=== PATIENT | female | born 1995 | race Caucasian/White ===

== ENCOUNTER 2020-04-11 07:56 | Outpatient (CLI) | payer OTHER ==
[2020-04-11 17:24] LABS: SARS-CoV-2 PCR by NAA Not Detected (NotDetected)
== END 2020-04-11 07:57 | disposition home or self-care (01) ==
LOC: LABBT 07:56
PROVIDERS: ATTEND Obstetrics & Gynecology
DX: Z01.812 Encounter for preprocedural laboratory examination (principal); Z20.822 Contact with and (suspected) exposure to COVID-19
CPT/HCPCS: 87635; U0003; U0005

== ENCOUNTER 2020-04-15 19:15 | Inpatient (IN) | payer OTHER ==
[2020-04-15] MEDS ORDERED: Ibuprofen 800 MG TAB PO PRN (19:42)
[2020-04-15] MEDS ORDERED: Butorphanol Tartrate 1 MG/ML VIAL SLOW IVP PRN (19:42)
[2020-04-15] MEDS ORDERED: Lidocaine 1% (PF) 30 ML VIAL SC PRN (19:42)
[2020-04-15] MEDS ORDERED: NS / Oxytocin 40 units/1000ml 1,000 ML IV PRN (19:42)
[2020-04-15] MEDS ORDERED: Acetaminophen 500 MG TAB PO PRN (19:42)
[2020-04-15] MEDS ORDERED: Misoprostol 200 MCG TAB PR PRN (19:42)
[2020-04-15] MEDS ORDERED: Promethazine HCl 25 MG/ML VIAL IM PRN (19:42)
[2020-04-15] MEDS ORDERED: HYDROcodone/Acetaminophen 5/325 mg Tablet PO PRN ×2 (19:42)
[2020-04-15] MEDS ORDERED: hydrALAZINE 20 MG/ML VIAL SLOW IVP PRN (19:42)
[2020-04-15] MEDS ORDERED: Docusate 100 MG CAP PO PRN (19:42)
[2020-04-15] MEDS ORDERED: Penicillin G Potassium 5 MILL.UNITS in Sodium Chloride 0.9% 100 ML IVPB SCH (19:42)
[2020-04-15] MEDS ORDERED: Diphenoxylate HCl/Atropine Tablet PO PRN ×2 (19:42)
[2020-04-15] MEDS ORDERED: Zolpidem Tartrate 5 MG TAB PO PRN (19:42)
[2020-04-15] MEDS ORDERED: Ondansetron PF 4 MG/2 ML Vial IVP PRN (19:42)
[2020-04-15 19:51] VITALS: BMI 32.9
[2020-04-15] MEDS: Lactated Ringer's 1,000 ML IV SCH (20:16)
[2020-04-15] MEDS: Misoprostol 100 MCG TAB VAG SCH ×2 (20:17→23:21)
[2020-04-15 20:21] LABS: Hemoglobin 12.3 g/dL (12.0-16.0); Mean Corpuscular HGB CONC 34.4 g/dL (32.0-36.0); Mean Corpuscular Hemoglobin 29.2 pg (27.0-31.0); Mean Platelet Volume 7.6 fL (7.4-10.4); Platelet Count 232 thou/uL (130-400); RBC Distribution Width 12.8 % (11.5-14.5); Red Blood Cell (RBC) Count 4.22 mill/uL (4.20-5.40); White Blood Cell (WBC) Count 5.3 thou/uL (4.8-10.8)
[2020-04-15] MEDS: Penicillin G 2.5 MILL.units 2.5 MILL.UNITS in Premix Bag 1 BAG IVPB SCH (20:46)
[2020-04-15 20:59] LABS: Syphilis Antibody Nonreactive (Nonreactive); Syphilis Antibody Index 0.03 S/CO (<1.00 Non-Reactive)
[2020-04-15 21:00] LABS: HBSAg Index 0.21 S/CO (0-0.99); Hep B Surf Ag Non-Reactive S/CO (NonReactive)
[2020-04-16] MEDS: Penicillin G 2.5 MILL.units 2.5 MILL.UNITS in Premix Bag 1 BAG IVPB SCH ×6 (00:55→21:57)
[2020-04-16] MEDS: Misoprostol 100 MCG TAB VAG SCH ×4 (05:04→21:57)
[2020-04-16] MEDS ORDERED: Fentanyl 4 mcg/Bup 0.1% Cadd 100 ML ONE (05:26)
[2020-04-16] MEDS: Lactated Ringer's 1,000 ML IV SCH ×3 (05:41→21:56)
[2020-04-16] MEDS ORDERED: ePHEDrine 50 MG/ML VIAL SLOW IVP PRN (06:28)
[2020-04-16] MEDS ORDERED: Lactated Ringer's 500 ML IV PRN (06:28)
[2020-04-16] MEDS ORDERED: diphenhydrAMINE 50 MG/ML VIAL IVP PRN (06:28)
[2020-04-16] MEDS ORDERED: Acetaminophen 325 MG TAB PO PRN (06:28)
[2020-04-16] MEDS ORDERED: Promethazine HCl 25 MG/ML VIAL IM PRN (06:28)
[2020-04-16] MEDS ORDERED: Naloxone HCl 0.4 mg/ml Vial IVP PRN ×2 (06:28)
[2020-04-16] MEDS ORDERED: Ondansetron PF 4 MG/2 ML Vial IVP PRN (06:28)
[2020-04-16] MEDS ORDERED: Fentanyl 4 mcg/Bupivacaine 0.1% Cassette 100 ML EPIDURAL SCH (06:30)
[2020-04-16] MEDS ORDERED: Communication Order-Pharmacy FS SCH (06:30)
[2020-04-16] MEDS ORDERED: Lidocaine 1% (PF) 30 ML VIAL SC PRN (06:49)
[2020-04-16] MEDS ORDERED: NS w/ Oxytocin 30 units 500 ML ONE (07:03)
[2020-04-16] MEDS: NS w/ Oxytocin 30 units 500 ML IV SCH ×16 (21:35→21:56)
[2020-04-16] MEDS ORDERED: Benzocaine-Menthol 82.5 ML CAN TOP PRN (22:01)
[2020-04-16] MEDS ORDERED: diphenhydrAMINE 25 MG CAP PO PRN (22:02)
[2020-04-16] MEDS ORDERED: hydrALAZINE 20 MG/ML VIAL SLOW IVP PRN (22:04)
[2020-04-16] MEDS ORDERED: Lanolin Ointment 7 GM TUBE TOP PRN (22:04)
[2020-04-16] MEDS: Ibuprofen 800 MG TAB PO SCH (22:49)
[2020-04-17] MEDS ORDERED: HYDROcodone/Acetaminophen 5/325 mg Tablet PO PRN ×2 (00:42)
[2020-04-17] MEDS: Ibuprofen 800 MG TAB PO SCH ×2 (06:23→13:36)
[2020-04-17] MEDS: NS w/ Oxytocin 30 units 500 ML IV SCH ×8 (06:28→13:39)
[2020-04-17] MEDS: Penicillin G 2.5 MILL.units 2.5 MILL.UNITS in Premix Bag 1 BAG IVPB SCH ×2 (06:28→13:37)
[2020-04-17] MEDS: Misoprostol 100 MCG TAB VAG SCH ×3 (06:29→13:37)
[2020-04-17] MEDS ORDERED: Prenatal Vitamin 1 TAB PO SCH (09:00)
[2020-04-17] MEDS ORDERED: Docusate Calcium (SURFAK) 240 MG CAP PO SCH (09:00)
[2020-04-17] MEDS: Lactated Ringer's 1,000 ML IV SCH (13:37)
[2020-04-17 17:44] VITALS: BP 125/76; TEMP 98.2
== END 2020-04-17 18:25 | disposition home or self-care (01) | DRG 807 ==
LOC: L&D 19:15 → 3SW 04-16 18:45
PROVIDERS: ADMIT Obstetrics & Gynecology; ATTEND Obstetrics & Gynecology
PROC: 10E0XZZ Delivery of Products of Conception, External Approach (ICD-10-PCS; principal; 2020-04-16)
PROC: 10907ZC Drainage of Amniotic Fluid, Therapeutic from Products of Conception, Via Natural or Artificial Opening (ICD-10-PCS; 2020-04-16)
PROC: 3E0P7VZ Introduction of Hormone into Female Reproductive, Via Natural or Artificial Opening (ICD-10-PCS; 2020-04-16)
DX: O99.824 Streptococcus B carrier state complicating childbirth (principal); Z37.0 Single live birth; Z20.822 Contact with and (suspected) exposure to COVID-19; Z3A.39 39 weeks gestation of pregnancy
CPT/HCPCS: 36415; 51702; 85027; 86780; 86850; 86900; 86901; 87340; J0595; J2540; J2590; J3490

== ENCOUNTER 2021-02-24 16:45 | Emergency (ER) | payer OTHER ==
[~2021-02-24 16:45] MED LIST: Iopamidol-370 76% 500 ML 1 ML ONE
[2021-02-24 19:24] LABS: #Monocytes 0.4 thou/uL (0.11-0.59); #Neutrophils 5.8 thou/uL (1.40-6.50); %Basophils 0.2 % (0.0-1.0); %Eosinophils 0.2 % (0.0-10.0); %Monocytes 4.7 % (0.0-10.0); %Neutrophils 70.9 % (42.0-75.0); Hemoglobin 15.2 g/dL (12.0-16.0); Mean Corpuscular HGB CONC 33.6 g/dL (32.0-36.0); Mean Corpuscular Hemoglobin 30.7 pg (27.0-31.0); Mean Corpuscular Volume 91.4 fL (78.0-98.0); Mean Platelet Volume 6.6 fL (7.4-10.4); Platelet Count 403 thou/uL (130-400); RBC Distribution Width 12.6 % (11.5-14.5); Red Blood Cell (RBC) Count 4.94 mill/uL (4.20-5.40); White Blood Cell (WBC) Count 8.2 thou/uL (4.8-10.8)
[2021-02-24 19:33] LABS: BHCG - Serum Negative (NEGATIVE); Pregs Control Background? CLEAR/WHITE (CLR/WHITE); Pregs Control Bar Appear? YES (CONTROL BAR)
[2021-02-24 19:46] LABS: ALT (SGPT) 25 U/L (8-55); AST (SGOT) 15 U/L (5-34); Albumin 4.8 g/dL (3.5-5.0); Alkaline Phosphatase 78 U/L (40-110); Anion Gap 13 mmol/L (10-20); BUN (Urea Nitrogen) 5 mg/dL (7.0-18.7); Bilirubin, Total 0.3 mg/dL (0.2-1.2); Calc. Creatinine Clearance 0 mL/min (70-130); Calcium 9.7 mg/dL (7.8-10.44); Carbon Dioxide 25 mmol/L (22-29); Chloride 107 mmol/L (98-107); Globulin 4.1 g/dL (2.4-3.5); Glucose 99 mg/dL (70-105); Potassium 3.4 mmol/L (3.5-5.1); Protein, Total 8.9 g/dL (6.0-8.3); Sodium 142 mmol/L (136-145)
== END 2021-02-24 20:53 ==
LOC: ERS 16:45
DX: S10.91XA Abrasion of unspecified part of neck, initial encounter (principal); V48.5XXA Car driver injured in noncollision transport accident in traffic accident, initial encounter
CPT/HCPCS: 70450; 71260; 72125; 74177; 80053; 84703; 85025; Q9967